=== PATIENT | female | born 1960 | race Caucasian/White ===

== ENCOUNTER 2020-08-14 21:17 | Emergency (ER) | payer MEDICARE, MEDICAID ==
[~2020-08-14] VITALS: Ht 154.9 cm; Wt 50.9 kg
[~2020-08-14 21:17] MED LIST: ALEN70TA6 PO; AMLO-150 PO; AMLO5TAB4 PO; BISA10SU4 PR; CALC-451 PO; CHOL100012 PO; CHOL500045 PO; DIAZ5TAB PO; DIPH1TAB PO; ESCI10TA PO; ESCI20TA10 PO; FAMO20TA7 PO; FLUT1AER INH; FOLI-17 PO; GABA-827 PO; GABA300C PO; GABA300C10 PO; GLYB2.5T2 PO; GLYB5TAB3 PO; LACT10SO24 PO; LIPA1CAP61 PO; LISI2.5T PO; LORA-445 PO; METF500T3 PO; MORP30TA PO; MULT1TAB76 PO; NITR100C6 PO; ONDA4TAB7 PO; OXYC10TA6 PO; PANT40TA3 PO; POLY17PO5 PO; POTA20TA14 PO; SPIR50TA PO; TETR15DR85 EACHEYE; TRAM50TA2 PO; VENL75CA PO; VENL75CA6 PO; ZOLP10TA PO; phenergan PO
--- NOTE | 2020-08-14 21:31 | NUR ---
PT STATES SHE WAS RECENTLY DC'D FROM [facility] ED TO [facility]; HER MEDICATIONS AND OXYGEN WERE SUPPOSED TO BE AT THE [facility] "BUT THEY WEREN'T THERE". [employer] MILLING OPERATOR DROVE PT BACK TO ED. PT'S WC IN ROOM
--- NOTE | 2020-08-14 21:33 | NUR ---
COCK-UP SPLINT ON LT WRIST. PT STATES SHE BROKE LT WRIST DURING RECENT HOSPITAL STAY. DR HODGE NOW BS FOR EXAM. Addendum: 08/14/20 at 2148 by JEREMÍAS WEARING SOFT C-COLLAR; HX OF CERVICAL SURGERY "YEARS AGO"
--- NOTE | 2020-08-14 21:50 | NUR ---
PT UNABLE TO RECALL ALL MEDICATIONS AND THE DOSES.
[2020-08-14 21:53] VITALS: BP 135/86
--- NOTE | 2020-08-14 22:00 | NUR ---
REPORT OF PT FROM RAN SCHNEIDER AND ASSUMING CARE OF PT AT THIS TIME.
[2020-08-14] MEDS ORDERED: OXYcodone/APAP 5/325MG TABLET ONE (22:22)
--- NOTE | 2020-08-14 22:25 | NUR ---
sup rn: called [employer] [facility], got a hold of Narayan Tidwell, he stated oxygen and concentrator will be delivered aprox 1 to 1.5 hour.
[2020-08-14] MEDS ORDERED: OXYcodone 5 MG/5 ML ORAL.SOL UDC ONE (22:29)
[2020-08-14] MEDS ORDERED: OXYcodone 5 MG/5 ML ORAL.SOL UDC PO PRN (22:30)
--- NOTE | 2020-08-14 22:32 | NUR ---
PT MEDICATED PER MAR.
--- NOTE | 2020-08-15 00:58 | NUR ---
PT PROVIDED [employer] VOUCHER TO ADDRESS ON PT DEMOGRAPHIC INFORMATION PER REQUEST. PT TO D/C WITH OXYGEN HOME. PT DENIES ANY OTHER NEEDS PERTAINING TO THIS VISIT AND AMBULATES VIA WHEELCHAIR TO D/C DESK FOR D/C HOME. ALL QUESTIONS ANSWERED AT THIS TIME.
== END 2020-08-15 01:13 | disposition home or self-care (01) ==
LOC: ED 22:21
DX: J44.9 Chronic obstructive pulmonary disease, unspecified (principal); J96.11 Chronic respiratory failure with hypoxia; Z99.81 Dependence on supplemental oxygen; E11.9 Type 2 diabetes mellitus without complications
CPT/HCPCS: 99283

== ENCOUNTER 2020-09-05 15:26 | Emergency (ER) | payer MEDICARE, MEDICAID ==
[~2020-09-05] VITALS: Ht 154.9 cm; Wt 45.0 kg
--- NOTE | 2020-09-05 15:47 | NUR ---
BREAK RN NOTE: PT BULMARO, REPORT TAKEN FROM EMS. PT C/O BILATERAL LEG CRAMPING AND DYSURIA ONSET YESTERDAY, HAS NOT VOIDED SINCE 0630 THIS AM. ALSO C/O CHRONIC PAIN EXACERBATION D/T RUNNING OUT OF MORPHINE (IN PAIN PUMP) 2 WEEKS AGO. HX CHRONIC PANCREATITIS, COPD (OXYGEN DEPENDENT), HTN, DM, DEPRESSION. MORPHINE 3 MG GIVEN AUTOMATION ANALYST BY EMS. PT DRESSED IN GOWN, BLANKET PROVIDED, CALL LIGHT IN REACH. REPORT GIVEN TO RAN MARIANO.
[2020-09-05] MEDS ORDERED: SODIUM CHLORIDE FLUSH 10ML SYR IVF ONE (16:00)
[2020-09-05 16:11] LABS: BASOPHILS % (AUTO) 1 % (0-1); EOSINOPHILS % (AUTO) 1 % (1-7); LYMPHOCYTES % (AUTO) 24 % (22-44); MEAN CORPUSCULAR HEMOGLOBIN 30.8 pg (27.0-34.8); MEAN CORPUSCULAR HGB CONC 32.8 g/dL (32.4-35.8); MEAN PLATELET VOLUME 8.1 fL (7.4-10.4); MONOCYTES % (AUTO) 6 % (2-9); NEUTROPHILS % (AUTO) 67 % (42-75); PLATELET COUNT 324 x10^3/uL (130-400); RED BLOOD COUNT 5.29 x10^6/uL (3.82-5.3); RED CELL DISTRIBUTION WIDTH 14.8 % (9.6-15.2)
--- NOTE | 2020-09-05 16:13 | NUR ---
PT STRAIGHT CATHED, SAMPLE SENT TO LAB, PT TOLERATED WELL
[2020-09-05 16:17] LABS: ALBUMIN 4.2 g/dL (3.4-5.0); ANION GAP 9 mmol/L (5-15); CHLORIDE 98 mmol/L (98-107); CREATININE 0.66 mg/dL (0.55-1.02)
[2020-09-05 16:19] LABS: MD NO
[2020-09-05 16:31] LABS: MICROSCOPIC AUTO
[2020-09-05] MEDS ORDERED: ONDANSETRON 2MG/ML, 2ML IVPush ONE (17:00)
[2020-09-05] MEDS ORDERED: MORPHINE SULFATE 4 MG/ML, 1ML IVPush PRN (17:00)
[2020-09-05] MEDS ORDERED: ONDANSETRON 2MG/ML, 2ML ONE (17:14)
[2020-09-05] MEDS ORDERED: MORPHINE SULFATE 4 MG/ML, 1ML ONE (17:14)
[2020-09-05 17:21] VITALS: BP 133/99
--- NOTE | 2020-09-05 18:48 | NUR ---
REPORT FROM [facility] RN, EMS AT BEDSIDE TO TAKE PT BACK TO FACILITY, [employer] GAVE PT DC PAPERWORK AND EMS LEAVNIG WITH PT AT THIS TIME
== END 2020-09-05 19:10 | disposition home or self-care (01) ==
LOC: ED 18:26
DX: N30.00 Acute cystitis without hematuria (principal); E11.9 Type 2 diabetes mellitus without complications; J44.9 Chronic obstructive pulmonary disease, unspecified
CPT/HCPCS: 36415; 80048; 81001; 82040; 83690; 85025; 87077; 87086; 87186; 96374; 96375; 99284; J2270; J2405